=== PATIENT | male | born 1965 | race Asian ===

== ENCOUNTER 2021-06-01 15:43 | Emergency (ER) | payer OTHER ==
[~2021-06-01] VITALS: Ht 177.8 cm; Wt 109.1 kg
[~2021-06-01 15:43] MED LIST: DIPH50 PO; FLUP10TA28 PO; OLAN15TA2 PO; TRIH5TAB3 PO
[2021-06-01 16:04] VITALS: BP 113/68
[2021-06-01] MEDS ORDERED: ALBU8HFA IH (16:24)
[2021-06-01] MEDS ORDERED: IBUP-2070 PO (16:24)
[2021-06-01] MEDS ORDERED: OLAN15TA36 PO (16:24)
[2021-06-01] MEDS ORDERED: RISP1TAB48 PO (16:24)
[2021-06-01] MEDS ORDERED: DOXY-354 PO (18:18)
== END 2021-06-01 18:34 | disposition home or self-care (01) ==
LOC: EMS 16:04
DX: L03.317 Cellulitis of buttock (principal); L02.31 Cutaneous abscess of buttock; K21.9 Gastro-esophageal reflux disease without esophagitis; F20.9 Schizophrenia, unspecified; F17.210 Nicotine dependence, cigarettes, uncomplicated; Z79.899 Other long term (current) drug therapy
CPT/HCPCS: 99284; Z7502

== ENCOUNTER 2021-07-19 13:24 | Inpatient (IN) | payer MEDICAID, OTHER ==
[~2021-07-19] VITALS: Ht 165.1 cm; Wt 109.0 kg
[~2021-07-19 13:24] MED LIST changes: +ALBU8HFA IH; -DIPH50 PO; +DOXY-354 PO; -FLUP10TA28 PO; +IBUP-2070 PO; +RISP1TAB48 PO
[2021-07-19 16:49] LABS: BASOPHILS % (AUTO) 0.4 % (0.0-2.0); EOSINOPHILS % (AUTO) 2.3 % (1.0-6.0); HEMOGLOBIN 15.2 g/dL (13.5-17.5); LYMPHOCYTES # (AUTO) 1.2 K/uL (1.0-4.8); LYMPHOCYTES % (AUTO) 9.3 % (22.0-44.0); MEAN CORPUSCULAR HEMOGLOBIN 31.1 pg (26.0-34.0); MEAN CORPUSCULAR HGB CONC 33.9 G/dL (31.0-37.0); MEAN CORPUSCULAR VOLUME 92 fL (80-100); MONOCYTES # (AUTO) 0.9 K/uL (0.1-1.0); MONOCYTES % (AUTO) 6.7 % (2.0-9.0); NEUTROPHILS # (AUTO) 10.8 K/uL (1.8-7.7); NEUTROPHILS % (AUTO) 81.3 % (40.0-70.0); PLATELET COUNT (AUTO) 230 K/uL (150-450); RED CELL DISTRIBUTION WIDTH 13.9 % (11.5-14.5)
[2021-07-19 16:51] LABS: ANION GAP 8 mmol/L (8-16); CARBON DIOXIDE 27 mmol/L (22-29); CHLORIDE 101 mmol/L (98-107); CREATININE 1.04 mg/dL (0.60-1.30); GLOMERULAR FILTR. RATE CALC > 60 mL/min (>60); GLUCOSE,RANDOM 132 mg/dL (70-110); POTASSIUM 3.4 mmol/L (3.5-5.1); SODIUM SERUM 136 mmol/L (136-145); UREA NITROGEN, BLOOD 11 mg/dL (7-18)
[2021-07-19 16:56] LABS: ALANINE AMINOTRANSFERASE 47 U/L (12-78); ALBUMIN 3.7 g/dL (3.4-5.0); ALKALINE PHOSPHATASE 96 U/L (46-116); ASPARTATE AMINOTRANSFERASE 25 U/L (15-37); BILIRUBIN,TOTAL 0.5 mg/dL (0.1-1.0); TOTAL PROTEIN, SERUM 7.7 g/dL (6.4-8.2)
[2021-07-19 17:09] LABS: COVID AG,FIA SOURCE NASAL SWAB
[2021-07-19] MEDS ORDERED: TUBERCULIN, PURIFIED PROTEIN DERIVATIVE 5 TU/0.1 ML SYRINGE ID ONE (17:45)
[2021-07-19] MEDS ORDERED: GuaiFENesin/D-METHORPHAN [SUGAR-FREE] 200-20MG/10 ML SYRUP UDCUP PO PRN (17:45)
[2021-07-19] MEDS ORDERED: LORazepam 2 MG TABLET PO PRN (17:45)
[2021-07-19] MEDS ORDERED: MAGNESIUM HYDROXIDE SUSPENSION 30 ML UDCUP PO PRN (17:45)
[2021-07-19] MEDS ORDERED: ACETAMINOPHEN 325 MG TABLET PO PRN (17:45)
[2021-07-19] MEDS ORDERED: MAG HYDROX/AL HYDROX/SIMETH ES 30 ML SUSPENSION UDCUP PO PRN (17:45)
[2021-07-19] MEDS ORDERED: PROMETHAZINE HCL 25 MG TABLET PO PRN (17:45)
[2021-07-19] MEDS ORDERED: LOPERAMIDE HCL 2 MG CAPSULE PO PRN (17:45)
[2021-07-19] MEDS ORDERED: ZOLPIDEM TARTRATE 10 MG TABLET PO PRN (17:45)
[2021-07-19] MEDS ORDERED: HydrOXYzine PAMOATE 50 MG CAPSULE PO PRN (17:45)
[2021-07-19] MEDS ORDERED: OLANZapine 5 MG RAPDIS TABLET PO PRN (17:45)
[2021-07-19] MEDS ORDERED: CEPHALEXIN MONOHYDRATE 500 MG CAPSULE PO ONE (18:30)
[2021-07-19] MEDS: THIAMINE 100 MG TABLET PO SCH (21:25)
[2021-07-19] MEDS: OLANZapine 10 MG RAPDIS TABLET PO SCH (21:25)
[2021-07-19] MEDS: TRIHEXYPHENIDYL HCL 2 MG TABLET PO SCH (21:25)
[2021-07-20 07:17] LABS: HEMOGLOBIN A1C 5.9 % (3.8-5.6)
[2021-07-20 07:23] LABS: CHOL/HDL RATIO 5.7 (4.2-7.3); FREE T4 (FREE THYROXINE) 0.89 ng/dL (0.76-1.46); THYROID STIMULATING HORMONE 1.07 uIU/mL (0.36-3.74)
[2021-07-20] MEDS: FOLIC ACID 1 MG TABLET PO SCH (09:21)
[2021-07-20] MEDS: FLUoxetine HCL 20 MG CAPSULE PO SCH (09:21)
[2021-07-20] MEDS: THIAMINE 100 MG TABLET PO SCH ×2 (09:21→16:30)
[2021-07-20] MEDS: MULTIVITAMINS WITH MINERALS, THERAPEUTIC TABLET PO SCH (09:22)
[2021-07-20] MEDS: TRIHEXYPHENIDYL HCL 2 MG TABLET PO SCH ×3 (09:33→17:07)
[2021-07-20 13:34] VITALS: BP 117/86
[2021-07-20] MEDS ORDERED: HYDROCORTISONE 2.5% 30 GM OINTMENT TP PRN (14:45)
[2021-07-20] MEDS: CEPHALEXIN MONOHYDRATE 500 MG CAPSULE PO SCH ×2 (16:30→20:57)
[2021-07-20 17:00] VITALS: BP 140/80
[2021-07-20] MEDS: OLANZapine 10 MG RAPDIS TABLET PO SCH (20:15)
[2021-07-21 08:00] VITALS: BP 122/48
[2021-07-21] MEDS ORDERED: POTASSIUM CHLORIDE 20 MEQ ER TABLET PO ONE (08:00)
[2021-07-21] MEDS: CEPHALEXIN MONOHYDRATE 500 MG CAPSULE PO SCH ×4 (08:40→20:38)
[2021-07-21] MEDS: FLUoxetine HCL 20 MG CAPSULE PO SCH (08:40)
[2021-07-21] MEDS: MULTIVITAMINS WITH MINERALS, THERAPEUTIC TABLET PO SCH (08:40)
[2021-07-21] MEDS: THIAMINE 100 MG TABLET PO SCH ×2 (08:40→16:54)
[2021-07-21] MEDS: TRIHEXYPHENIDYL HCL 2 MG TABLET PO SCH ×3 (08:40→16:54)
[2021-07-21] MEDS: FOLIC ACID 1 MG TABLET PO SCH (08:40)
[2021-07-21] MEDS ORDERED: TRIH2TAB3 PO (15:15)
[2021-07-21] MEDS ORDERED: MELA5TAB40 PO (15:15)
[2021-07-21] MEDS ORDERED: PROZ20 PO (15:15)
[2021-07-21] MEDS ORDERED: CEPH-558 PO (15:15)
[2021-07-21] MEDS ORDERED: OMEG-108 PO (15:15)
[2021-07-21] MEDS ORDERED: OLAN10TA26 PO (15:15)
[2021-07-21 16:47] VITALS: BP 128/62
[2021-07-21] MEDS: OLANZapine 10 MG RAPDIS TABLET PO SCH (16:54)
[2021-07-21] MEDS ORDERED: ALBUTEROL SULFATE HFA 90 MCG/PUFF 8 GM INHALER IH PRN (23:30)
[2021-07-22] MEDS: MULTIVITAMINS WITH MINERALS, THERAPEUTIC TABLET PO SCH (08:41)
[2021-07-22] MEDS: FOLIC ACID 1 MG TABLET PO SCH (08:41)
[2021-07-22] MEDS: OLANZapine 10 MG RAPDIS TABLET PO SCH (08:42)
[2021-07-22] MEDS: TRIHEXYPHENIDYL HCL 2 MG TABLET PO SCH ×2 (08:42→13:20)
[2021-07-22] MEDS: CEPHALEXIN MONOHYDRATE 500 MG CAPSULE PO SCH ×2 (08:42→13:20)
[2021-07-22] MEDS: THIAMINE 100 MG TABLET PO SCH (08:42)
[2021-07-22] MEDS: FLUoxetine HCL 20 MG CAPSULE PO SCH (08:43)
[2021-07-22 09:54] VITALS: BP 118/77
[2021-07-22 13:00] VITALS: BP 112/72
== END 2021-07-22 14:30 | disposition home or self-care (01) | DRG 750 ==
LOC: EMS 13:24 → 3EI 07-20 12:01
PROVIDERS: ADMIT Psychiatry & Neurology Psychiatry; ATTEND Psychiatry & Neurology Psychiatry
DX: F20.9 Schizophrenia, unspecified (principal); Z91.19 Patient's noncompliance with other medical treatment and regimen; E87.6 Hypokalemia; Z20.822 Contact with and (suspected) exposure to COVID-19; I10 Essential (primary) hypertension; J44.9 Chronic obstructive pulmonary disease, unspecified; F17.210 Nicotine dependence, cigarettes, uncomplicated; L03.90 Cellulitis, unspecified; L30.9 Dermatitis, unspecified; Z55.9 Problems related to education and literacy, unspecified; Z59.9 Problem related to housing and economic circumstances, unspecified; Z63.9 Problem related to primary support group, unspecified; Z65.3 Problems related to other legal circumstances
CPT/HCPCS: 80053; 80061; 83036; 84439; 84443; 85025; 86592; 99285; G0480

== ENCOUNTER 2023-12-18 14:39 | Emergency (ER) | payer MEDICAID, OTHER ==
[~2023-12-18] VITALS: Ht 165.1 cm; Wt 109.1 kg
[~2023-12-18 14:39] MED LIST changes: -ALBU8HFA IH; +CEPH-558 PO; -DOXY-354 PO; -IBUP-2070 PO; +MELA5TAB40 PO; +OLAN10TA26 PO; -OLAN15TA2 PO; +OMEG-135 PO; +PROZ20 PO; -RISP1TAB48 PO; +TRIH2TAB3 PO; -TRIH5TAB3 PO
[2023-12-18 14:41] VITALS: BP 138/87; PULSE 100; RESP 18; TEMP 98; O2SAT 95
== END 2023-12-18 20:23 | disposition left against medical advice (07) ==
LOC: EMS 14:39
DX: Z53.21 Procedure and treatment not carried out due to patient leaving prior to being seen by health care provider (principal)
CPT/HCPCS: 71045

== ENCOUNTER 2024-03-12 18:18 | Emergency (ER) | payer OTHER ==
[~2024-03-12] VITALS: Ht 165.1 cm; Wt 104.5 kg
[2024-03-12 18:39] VITALS: BP 128/71; PULSE 97; RESP 16; TEMP 98; O2SAT 98
== END 2024-03-12 19:56 | disposition home or self-care (01) ==
LOC: EMS 18:18
DX: R52 Pain, unspecified (principal); M19.90 Unspecified osteoarthritis, unspecified site; F17.210 Nicotine dependence, cigarettes, uncomplicated; J44.89 Other specified chronic obstructive pulmonary disease; F20.9 Schizophrenia, unspecified; K21.9 Gastro-esophageal reflux disease without esophagitis; Z79.899 Other long term (current) drug therapy; W19.XXXA Unspecified fall, initial encounter; Y93.89 Activity, other specified; Y92.89 Other specified places as the place of occurrence of the external cause; Y99.8 Other external cause status
CPT/HCPCS: 99282; Z7502

== ENCOUNTER 2025-01-29 23:55 | Inpatient (IN) | payer MEDICAID ==
[~2025-01-29] VITALS: Ht 170.2 cm; Wt 114.8 kg
[~2025-01-29 23:55] MED LIST changes: +ALBU18HF12 IH; +AZIT-167 PO; -CEPH-558 PO; -MELA5TAB40 PO; +PRED-554 PO
[2025-01-30 00:41] LABS: GLUCOMETER DEV NAME(LOC) POC.BV; POC SARS-COV2 AG, FIA NEGATIVE (NEGATIVE)
[2025-01-30 02:12] VITALS: BP 113/81; PULSE 87; RESP 16; TEMP 97.3; O2SAT 98
[2025-01-30] MEDS ORDERED: INFLUENZA VIRUS VACCINE TVS (6MO+) 2025-26/PF 45 MCG/0.5 ML SYRINGE IM. ONE (04:30)
[2025-01-30] MEDS ORDERED: PNEUMOCOCCAL VACCINE POLYVALENT 0.5 ML SYRINGE [PPSV23] IM. ONE (04:30)
[2025-01-30] MEDS ORDERED: BACITRACIN 28 GM OINTMENT TP PRN (05:45)
[2025-01-30] MEDS ORDERED: MAGNESIUM HYDROXIDE SUSPENSION 30 ML UDCUP PO PRN (05:45)
[2025-01-30] MEDS ORDERED: BENZOCAINE/MENTHOL [CEPACOL] LOZENGE PO PRN (05:45)
[2025-01-30] MEDS ORDERED: ONDANSETRON 4 MG TABLET PO PRN (05:45)
[2025-01-30] MEDS ORDERED: DOCUSATE SODIUM 100 MG CAPSULE PO PRN (05:45)
[2025-01-30] MEDS ORDERED: LOPERAMIDE HCL 2 MG CAPSULE PO PRN (05:45)
[2025-01-30] MEDS ORDERED: ALBUTEROL SULFATE HFA 90 MCG/PUFF 8 GM INHALER IH PRN (05:45)
[2025-01-30] MEDS ORDERED: PETROLATUM,WHITE 28 GM JELLY TP PRN (05:45)
[2025-01-30] MEDS ORDERED: MAG HYDROX/ALUMINUM HYD/SIMETH ES 30 ML SUSPENSION UDCUP PO PRN (05:45)
[2025-01-30] MEDS ORDERED: OMEPRAZOLE 20 MG CAPSULE PO PRN (05:45)
[2025-01-30] MEDS ORDERED: IBUPROFEN 600 MG TABLET PO PRN (05:45)
[2025-01-30] MEDS ORDERED: ACETAMINOPHEN 325 MG TABLET PO PRN (05:45)
[2025-01-30 08:44] VITALS: BP 118/79; PULSE 82; RESP 18; TEMP 98.9; O2SAT 99
[2025-01-30 20:34] VITALS: RESP 18
[2025-01-31 08:29] VITALS: BP 109/76; PULSE 83; RESP 18; TEMP 98; O2SAT 99
[2025-01-31] MEDS: OLANZapine 7.5 MG TABLET PO SCH (08:49)
[2025-01-31] MEDS: NICOTINE POLACRILEX 2 MG LOZENGE PO PRN (12:04)
[2025-01-31 20:49] VITALS: BP 115/76; PULSE 82; RESP 18; TEMP 98.1; O2SAT 100
[2025-02-01 08:22] VITALS: BP 109/81; PULSE 88; RESP 18; TEMP 97.9; O2SAT 97
[2025-02-01 09:02] LABS: PLATELET COUNT (AUTO) 222 K/uL (150-450); RED BLOOD CELL COUNT(AUTO) 5.16 MIL/uL (4.50-5.90); RED CELL DISTRIBUTION WIDTH 13.9 % (11.5-14.5); WHITE BLOOD COUNT (AUTO) 8.3 K/uL (4.5-11.0)
[2025-02-01 09:33] LABS: ASPARTATE AMINOTRANSFERASE 24 U/L (15-37); CALCIUM, TOTAL 8.9 mg/dL (8.8-10.5); CHOL/HDL RATIO 5.7 (4.2-7.3); CREATININE 1.17 mg/dL (0.60-1.30); GLOMERULAR FILTR. RATE CALC > 60 mL/min (>60); GLUCOSE,RANDOM 115 mg/dL (70-110); LDL CHOL (CALC.) 141 mg/dL (0-130); SODIUM SERUM 139 mmol/L (136-145); TOTAL PROTEIN, SERUM 7.0 g/dL (6.4-8.2); UREA NITROGEN, BLOOD 15 mg/dL (7-18)
[2025-02-01 09:53] LABS: APPEARANCE,URINE TURBID (CLEAR); GLUCOSE, URINE (UA) TRACE mg/dL (NEGATIVE); LEUKOCYTE ESTERASE ,URINE NEGATIVE (NEGATIVE); NITRATE,URINE NEGATIVE (NEGATIVE); OCCULT BLOOD,URINE NEGATIVE (NEGATIVE); PH,URINE DRUG SCREEN 6.0 (5.0-8.0); SPECIFIC GRAVITIY, URINE 1.023 (1.003-1.030)
[2025-02-01 10:00] LABS: ALCOHOL, URINE DRUG SCREEN NEGATIVE (NEGATIVE); AMPHET/METH SCREEN,URINE NEGATIVE (NEGATIVE); BARBITURATE SCREEN, URINE NEGATIVE (NEGATIVE); CANNABINOID SCREEN,URINE NEGATIVE (NEGATIVE); COCAINE SCREEN,URINE NEGATIVE (NEGATIVE); METHADONE SCREEN, URINE NEGATIVE (NEGATIVE)
[2025-02-01 10:09] LABS: AMORPHOUS SEDIMENT,UR Many /LPF (None Seen); SQUAMOUS EPITHELIAL CELL,UR Rare /LPF (None Seen)
[2025-02-01] MEDS: INSULIN LISPRO 100 UNITS/ML SQ PRN (17:52)
[2025-02-01] MEDS: ZOLPIDEM TARTRATE 10 MG TABLET PO PRN (20:45)
[2025-02-01 20:47] VITALS: BP 106/69; PULSE 80; RESP 18; TEMP 98; O2SAT 98
[2025-02-01 23:55] LABS: GLUCOMETER DEV NAME(LOC) BV2S.; GLUCOSE,POINT OF CARE 183 MG/DL (70-110)
[2025-02-02 07:01] LABS: GLUCOMETER DEV NAME(LOC) BV2S.; GLUCOSE,POINT OF CARE 125 MG/DL (70-110)
[2025-02-02 08:36] VITALS: BP 108/79; PULSE 100; RESP 18; TEMP 97.6; O2SAT 98
[2025-02-02 11:40] LABS: GLUCOMETER DEV NAME(LOC) BV2S.; GLUCOSE,POINT OF CARE 172 MG/DL (70-110)
[2025-02-02 16:45] LABS: GLUCOMETER DEV NAME(LOC) BV2S.; GLUCOSE,POINT OF CARE 151 MG/DL (70-110)
[2025-02-02 20:35] LABS: GLUCOMETER DEV NAME(LOC) BV2S.; GLUCOSE,POINT OF CARE 121 MG/DL (70-110)
[2025-02-02 21:18] VITALS: BP 110/79; PULSE 86; RESP 18; TEMP 97.8; O2SAT 98
[2025-02-03 06:35] LABS: GLUCOMETER DEV NAME(LOC) BV2X.3; GLUCOSE,POINT OF CARE 130 MG/DL (70-110)
[2025-02-03 08:20] VITALS: BP 113/88; PULSE 90; RESP 18; TEMP 97.9; O2SAT 100
[2025-02-03 12:20] LABS: GLUCOMETER DEV NAME(LOC) BV2S.; GLUCOSE,POINT OF CARE 146 MG/DL (70-110)
[2025-02-03 17:10] LABS: GLUCOMETER DEV NAME(LOC) BV2S.; GLUCOSE,POINT OF CARE 144 MG/DL (70-110)
[2025-02-03 20:21] VITALS: BP_SYST 106; BP_SYST 112; BP_DIAS 73; BP_DIAS 86; PULSE 78; PULSE 80; RESP 17; TEMP 98; TEMP 98.1; O2SAT 95; O2SAT 97; O2SAT 98
[2025-02-03 22:26] LABS: GLUCOMETER DEV NAME(LOC) BV2S.; GLUCOSE,POINT OF CARE 159 MG/DL (70-110)
[2025-02-04 06:50] LABS: GLUCOMETER DEV NAME(LOC) BV2S.; GLUCOSE,POINT OF CARE 110 MG/DL (70-110)
[2025-02-04 08:22] VITALS: RESP 17
[2025-02-04 11:41] LABS: GLUCOMETER DEV NAME(LOC) BV2S.; GLUCOSE,POINT OF CARE 194 MG/DL (70-110)
[2025-02-04 13:20] LABS: GLUCOMETER DEV NAME(LOC) BV2S.; GLUCOSE,POINT OF CARE 155 MG/DL (70-110)
[2025-02-04 16:55] LABS: GLUCOMETER DEV NAME(LOC) BV2S.; GLUCOSE,POINT OF CARE 119 MG/DL (70-110)
[2025-02-04 20:20] VITALS: BP 107/85; PULSE 88; RESP 17; TEMP 98.1; O2SAT 97
[2025-02-04 20:35] LABS: GLUCOMETER DEV NAME(LOC) BV2S.; GLUCOSE,POINT OF CARE 172 MG/DL (70-110)
[2025-02-05 06:10] LABS: GLUCOMETER DEV NAME(LOC) BV2S.; GLUCOSE,POINT OF CARE 115 MG/DL (70-110)
[2025-02-05 08:06] VITALS: BP 102/76; PULSE 96; RESP 16; TEMP 97.8; O2SAT 98
[2025-02-05] MEDS ORDERED: METF-1211 PO (14:20)
[2025-02-05] MEDS ORDERED: OLAN5TAB94 PO (14:21)
[2025-02-05 16:36] LABS: GLUCOMETER DEV NAME(LOC) BV2S.; GLUCOSE,POINT OF CARE 127 MG/DL (70-110)
== END 2025-02-05 16:30 | disposition home or self-care (01) | DRG 753 ==
LOC: B2S 01-30 00:51
PROVIDERS: ADMIT Psychiatry & Neurology Psychiatry; ATTEND Psychiatry & Neurology Psychiatry
DX: F31.9 Bipolar disorder, unspecified (principal); F22 Delusional disorders; E66.9 Obesity, unspecified; I10 Essential (primary) hypertension; J44.9 Chronic obstructive pulmonary disease, unspecified; E11.8 Type 2 diabetes mellitus with unspecified complications; F25.9 Schizoaffective disorder, unspecified; Z68.39 Body mass index [BMI] 39.0-39.9, adult; F41.9 Anxiety disorder, unspecified; G47.00 Insomnia, unspecified; K21.9 Gastro-esophageal reflux disease without esophagitis; K59.00 Constipation, unspecified; R45.851 Suicidal ideations; F10.90 Alcohol use, unspecified, uncomplicated; Z20.822 Contact with and (suspected) exposure to COVID-19; Y90.8 Blood alcohol level of 240 mg/100 ml or more; Z81.8 Family history of other mental and behavioral disorders; Z79.899 Other long term (current) drug therapy
CPT/HCPCS: 80053; 80061; 80307; 81001; 82962; 83036; 84436; 84443; 85025; 90686